=== PATIENT | female | born 1945 | race Caucasian/White ===

== ENCOUNTER → 2020-10-02 | Outpatient (CLI) | payer MEDICARE ==
[~2020-10-02] MED LIST: ALBU6.7H8 INH; ASPI-496 PO; BENA20TA54 PO; CHOL200024 PO; CYAN25009 PO; FAMO10TA31 PO; FLUT1BLS9 INH; FLUT1DIS3 INH; LEVO100T5 PO; OMEG1CAP24 PO; OMEP20TA62 PO; SIMV20TA19 PO
[2020-10-02 12:18] LABS: CALCIUM 9.3 mg/dL (8.5-10.1); CHLORIDE 111 mmol/L (98-107)
[2020-10-02 12:25] LABS: ALANINE AMINOTRANSFERASE 16 U/L (12-78); ALBUMIN 3.6 g/dL (3.4-5.0); ALKALINE PHOSPHATASE 71 U/L (45-117); ANION GAP 7 mmol/L (5-15); BILIRUBIN,TOTAL 0.6 mg/dL (0.2-1.0); CREATININE 1.13 mg/dL (0.55-1.02); TOTAL PROTEIN 7.1 g/dL (6.4-8.2)
== END | disposition home or self-care (01) ==
LOC: STAR 08:41
PROVIDERS: ATTEND Internal Medicine
DX: Z01.818 Encounter for other preprocedural examination (principal); R22.2 Localized swelling, mass and lump, trunk; I25.2 Old myocardial infarction
CPT/HCPCS: 36415; 80053; 93005

== ENCOUNTER 2020-10-07 07:45 | Day surgery (SDC) | payer MEDICARE ==
[~2020-10-07] VITALS: Ht 172.7 cm; Wt 117.7 kg
[2020-10-07 08:20] VITALS: BP 164/98
[2020-10-07] MEDS ORDERED: OXYcodone 5 MG/5 ML ORAL.SOL UDC PO PRN (08:30)
[2020-10-07] MEDS ORDERED: ALBUTEROL SULFATE 2.5 MG/3 ML NPPB PRN (08:30)
[2020-10-07] MEDS ORDERED: LABETALOL 5MG/ML, 20ML IV PRN (08:30)
[2020-10-07] MEDS ORDERED: MIDAZOLAM 1 MG/ML, 2ML IV PRN (08:30)
[2020-10-07] MEDS ORDERED: CHLORHEXIDINE 15 ML UDC PO ONE (08:30)
[2020-10-07] MEDS ORDERED: FENTANYL PF 100 MCG/2ML IV PRN (08:30)
[2020-10-07] MEDS ORDERED: LACTATED RINGERS 1,000 ML IV SCH (08:30)
[2020-10-07] MEDS ORDERED: ONDANSETRON 2MG/ML, 2ML IVPush PRN (08:30)
[2020-10-07] MEDS ORDERED: ACETAMINOPHEN 325 MG TABLET PO PRN (08:30)
[2020-10-07] MEDS ORDERED: CHLORHEXIDINE 15 ML UDC ONE (08:34)
[2020-10-07] MEDS ORDERED: PROPOFOL 10 MG/ML, 20ML ONE (09:10)
[2020-10-07] MEDS ORDERED: hydrALAzine 20 MG/ML, 1ML ONE (10:25)
[2020-10-07] MEDS ORDERED: hydrALAzine 20 MG/ML, 1ML IV PRN (10:30)
== END 2020-10-07 11:38 | disposition home or self-care (01) ==
LOC: OUT 07:45
PROVIDERS: ATTEND Internal Medicine Geriatric Medicine
DX: K31.89 Other diseases of stomach and duodenum (principal); K29.50 Unspecified chronic gastritis without bleeding; K21.9 Gastro-esophageal reflux disease without esophagitis; I10 Essential (primary) hypertension; E78.5 Hyperlipidemia, unspecified; E03.9 Hypothyroidism, unspecified; J45.909 Unspecified asthma, uncomplicated; E66.9 Obesity, unspecified; Z79.890 Hormone replacement therapy; Z79.899 Other long term (current) drug therapy; Z88.8 Allergy status to other drugs, medicaments and biological substances
CPT/HCPCS: 43239; 43251; 43259; 88305; J0360; J2704; J7120